=== PATIENT | female | born 2000 | race African-American/Black ===

== ENCOUNTER 2020-04-25 14:04 | Emergency (ER) | payer OTHER ==
[~2020-04-25] VITALS: Ht 165.1 cm; Wt 47.0 kg
[2020-04-25 14:50] VITALS: BP 120/82
[2020-04-25 15:25] LABS: URINE BILIRUBIN - DIPSTICK NEGATIVE (NEGATIVE); URINE BLOOD DIPSTICK NEGATIVE (NEGATIVE); URINE COLOR YELLOW; URINE GLUCOSE - DIPSTICK NEGATIVE (NEGATIVE); URINE KETONE NEGATIVE (NEGATIVE); URINE NITRITE - DIPSTICK NEGATIVE (Negative); URINE PH 6.5 (4.5-8.0); URINE PROTEIN - DIPSTICK TRACE mg/dL (NEG-TRACE); URINE SPECIFIC GRAVITY 1.025
[2020-04-25 15:27] LABS: URINE LEUK ESTERASE MODERATE (NEGATIVE)
[2020-04-25 15:35] LABS: URINE RBC 0-2 RBC/hpf (0-5); URINE SQUAMOUS EPITHELIAL CELL MANY EPI/hpf (0-FEW)
[2020-04-25 15:36] LABS: URINE BACTERIA FEW hpf
[2020-04-25] MEDS ORDERED: DIFLUCAN100 M1 PO (15:43)
== END 2020-04-25 16:15 | disposition home or self-care (01) ==
LOC: ED 14:04
DX: B37.3 Candidiasis of vulva and vagina (principal)

== ENCOUNTER 2020-11-29 17:25 | Emergency (ER) | payer OTHER ==
[~2020-11-29] VITALS: Ht 165.1 cm; Wt 55.0 kg
[~2020-11-29 17:25] MED LIST: DIFLUCAN100 M1 PO
[2020-11-29] MEDS ORDERED: LAMISIL AT1 % EX (18:10)
[2020-11-29 18:26] VITALS: BP 124/64
== END 2020-11-29 18:30 | disposition home or self-care (01) ==
LOC: ED 17:25
DX: B35.4 Tinea corporis (principal)

== ENCOUNTER 2020-12-03 08:29 | Emergency (ER) | payer OTHER ==
[~2020-12-03] VITALS: Ht 165.1 cm; Wt 50.0 kg
[~2020-12-03 08:29] MED LIST changes: +LAMISIL AT1 % EX
[2020-12-03 10:02] LABS: HEMATOCRIT 40.7 % (37.0-47.0); HEMOGLOBIN 13.2 g/dl (12.0-16.0); IMMATURE GRANULOCYTES 0.7 % (0.0-5.0); MEAN CELL VOLUME 96.2 fL CALC (80.0-100.0); MEAN CORPUSCULAR HGB 31.2 pG CALC (26.0-32.0); MEAN CORPUSCULAR HGB CONC 32.4 g/dL CAL (32.0-36.0); NEUT# 2.96 thou/uL (2.00-7.15); RED BLOOD COUNT 4.23 mill/uL (4.20-5.60); RED CELL DISTRI WIDTH 11.4 % (11.5-15.5)
[2020-12-03 10:22] LABS: ALBUMIN 5.1 g/dL (3.2-5.0); ALKALINE PHOSPHATASE 50 u/l (38-126); ANION GAP 15 (6-22 (CALC)); BILIRUBIN, TOTAL 1.2 mg/dL (0.0-1.4); BUN 12 mg/dL (8-21); BUN/CREATININE RATIO 20 (12-20 (CALC)); CARBON DIOXIDE 24 mmol/l (22-30); CHLORIDE 103 mmol/l (95-108); CREATININE 0.6 mg/dL (0.5-1.0); GFR > 60 ML/MIN (>=60 (CALC)); GFR FOR AFR.AMER. > 60 ML/MIN (>=60 (CALC)); LIPASE 152 u/l (23-300); SGOT/AST 33 u/l (14-36); SODIUM 138 mmol/l (137-146); TOTAL PROTEIN 9.2 g/dL (6.3-8.2)
[2020-12-03 11:13] LABS: URINE BILIRUBIN - DIPSTICK NEGATIVE (NEGATIVE); URINE BLOOD DIPSTICK NEGATIVE (NEGATIVE); URINE COLOR YELLOW; URINE GLUCOSE - DIPSTICK NEGATIVE (NEGATIVE); URINE KETONE NEGATIVE (NEGATIVE); URINE PROTEIN - DIPSTICK NEGATIVE (NEG-TRACE); URINE SPECIFIC GRAVITY 1.015
[2020-12-03 11:16] LABS: URINE LEUK ESTERASE MODERATE (NEGATIVE); URINE NITRITE - DIPSTICK NEGATIVE (Negative)
[2020-12-03 11:17] LABS: URINE BACTERIA FEW hpf; URINE EPITHELIAL CELLS FEW EPI/hpf (0-FEW)
[2020-12-03] MEDS ORDERED: OMNI-PAC300 MG PO (11:24)
[2020-12-03 11:38] VITALS: BP 114/60
== END 2020-12-03 12:01 | disposition home or self-care (01) ==
LOC: ED 08:29
PROVIDERS: Family Medicine
DX: N39.0 Urinary tract infection, site not specified (principal); Z20.822 Contact with and (suspected) exposure to COVID-19

== ENCOUNTER 2020-12-05 14:20 | Emergency (ER) | payer OTHER ==
[~2020-12-05] VITALS: Ht 165.1 cm; Wt 55.0 kg
[~2020-12-05 14:20] MED LIST changes: +OMNI-PAC300 MG PO
[2020-12-05] MEDS ORDERED: ZOFRAN4 MG/TAB PO (15:39)
[2020-12-05 17:00] VITALS: BP 129/71
== END 2020-12-05 17:02 | disposition home or self-care (01) ==
LOC: ED 14:20
DX: B34.9 Viral infection, unspecified (principal); Z20.822 Contact with and (suspected) exposure to COVID-19

== ENCOUNTER 2021-06-27 10:42 | Emergency (ER) | payer OTHER ==
[~2021-06-27] VITALS: Ht 165.1 cm; Wt 54.0 kg
[~2021-06-27 10:42] MED LIST changes: +ZOFRAN4 MG/TAB PO
[2021-06-27 12:12] LABS: HEMATOCRIT 47.9 % (37.0-47.0); HEMOGLOBIN 15.4 g/dl (12.0-16.0); IMMATURE GRANULOCYTES 1.2 % (0.0-5.0); MEAN CELL VOLUME 95.8 fL CALC (80.0-100.0); MEAN CORPUSCULAR HGB 30.8 pG CALC (26.0-32.0); MEAN CORPUSCULAR HGB CONC 32.2 g/dL CAL (32.0-36.0); NEUT# 1.9 thou/uL (2.00-7.15); RED CELL DISTRI WIDTH 11.7 % (11.5-15.5)
[2021-06-27 13:14] LABS: ALBUMIN 4.8 g/dL (3.2-5.0); ALKALINE PHOSPHATASE 51 u/l (38-126); ANION GAP 13 (6-22 (CALC)); BILIRUBIN, TOTAL 1.2 mg/dL (0.0-1.4); BUN 8 mg/dL (7-17); BUN/CREATININE RATIO 14 (12-20 (CALC)); CARBON DIOXIDE 23 mmol/l (22-30); CHLORIDE 107 mmol/l (95-108); CREATININE 0.6 mg/dL (0.5-1.0); GFR > 60 ML/MIN (>=60 (CALC)); GFR FOR AFR.AMER. > 60 ML/MIN (>=60 (CALC)); LIPASE 112 u/l (23-300); POTASSIUM 3.9 mmol/l (3.5-5.1); SGOT/AST 43 u/l (14-36); SODIUM 138 mmol/l (137-146); TOTAL PROTEIN 8.7 g/dL (6.3-8.2)
[2021-06-27] MEDS ORDERED: ONDANSETRON4 MG PO (14:04)
[2021-06-27 14:25] LABS: URINE BILIRUBIN - DIPSTICK NEGATIVE (NEGATIVE); URINE BLOOD DIPSTICK NEGATIVE (NEGATIVE); URINE COLOR YELLOW; URINE GLUCOSE - DIPSTICK NEGATIVE (NEGATIVE); URINE KETONE NEGATIVE (NEGATIVE); URINE LEUK ESTERASE NEGATIVE (NEGATIVE); URINE NITRITE - DIPSTICK NEGATIVE (Negative); URINE PROTEIN - DIPSTICK NEGATIVE (NEG-TRACE)
[2021-06-27 15:23] VITALS: BP 124/75
== END 2021-06-27 15:24 | disposition home or self-care (01) ==
LOC: ED 10:42
PROVIDERS: Nurse Practitioner
DX: R11.2 Nausea with vomiting, unspecified (principal)

== ENCOUNTER 2022-08-06 13:52 | Emergency (ER) | payer OTHER ==
[~2022-08-06] VITALS: Ht 165.1 cm; Wt 62.0 kg
[2022-08-06] VITALS (12 sets, daily range): BP systolic 94–139; BP diastolic 61–88
[~2022-08-06 13:52] MED LIST changes: +ONDANSETRON4 MG PO
[2022-08-06 15:51] LABS: URINE BILIRUBIN - DIPSTICK NEGATIVE (NEGATIVE); URINE BLOOD DIPSTICK TRACE-INTACT (NEGATIVE); URINE COLOR YELLOW; URINE GLUCOSE - DIPSTICK NEGATIVE (NEGATIVE); URINE KETONE NEGATIVE (NEGATIVE); URINE LEUK ESTERASE LARGE (NEGATIVE); URINE NITRITE - DIPSTICK NEGATIVE (Negative); URINE PROTEIN - DIPSTICK NEGATIVE (NEG-TRACE); URINE SPECIFIC GRAVITY <=1.005; URINE UROBILINOGEN - DIPSTICK 0.2 E.U./dL (0.2)
[2022-08-06 15:59] LABS: URINE BACTERIA FEW hpf; URINE RBC 0-2 RBC/hpf (0-5); URINE SQUAMOUS EPITHELIAL CELL FEW EPI/hpf (0-FEW); URINE TRICHOMONAS FEW hpf
[2022-08-06] MEDS ORDERED: DOXYCYCL HYC100 M4 PO (17:11)
[2022-08-06] MEDS ORDERED: METRONIDAZOLE500 MG PO (17:11)
== END 2022-08-06 16:55 | disposition home or self-care (01) ==
LOC: ED 13:52
PROVIDERS: Family Medicine
DX: N39.0 Urinary tract infection, site not specified (principal); B95.4 Other streptococcus as the cause of diseases classified elsewhere; N89.8 Other specified noninflammatory disorders of vagina

== ENCOUNTER 2023-09-25 23:18 | Emergency (ER) | payer BC ==
[~2023-09-25] VITALS: Ht 165.1 cm; Wt 51.0 kg
[~2023-09-25 23:18] MED LIST changes: +DOXYCYCL HYC100 M4 PO; +METRONIDAZOLE500 MG PO
[2023-09-26] MEDS ORDERED: ONDANSETRON HCl 4 MG/2 ML SDV IV ONE (00:50)
[2023-09-26] MEDS ORDERED: LOPERAMIDE HCL 2 MG CAP PO ONE (00:50)
[2023-09-26] MEDS ORDERED: SODIUM CHLORIDE 0.9% 1,000 ML IV ONE (00:50)
[2023-09-26] MEDS ORDERED: ONDANSETRON4 MG PO (00:55)
[2023-09-26 01:28] LABS: BASO% 0.1 % (0-3); IMMATURE GRANULOCYTES 0.9 % (0.0-5.0); LYMPH% 6.8 % (15-41); MEAN CELL VOLUME 93.6 fL CALC (80.0-100.0); MEAN CORPUSCULAR HGB 31.1 pG CALC (26.0-32.0); MEAN CORPUSCULAR HGB CONC 33.2 g/dL CAL (32.0-36.0); MONO% 3.6 % (2-13); NEUT# 13.07 thou/uL (2.00-7.15); NEUT% 88.6 % (42-76); RED BLOOD COUNT 3.92 mill/uL (4.20-5.60); RED CELL DISTRI WIDTH 11.9 % (11.5-15.5)
[2023-09-26 01:29] LABS: HEMATOCRIT 36.7 % (37.0-47.0); HEMOGLOBIN 12.2 g/dl (12.0-16.0)
[2023-09-26 01:50] LABS: ALBUMIN 4.8 g/dL (3.2-5.0); BILIRUBIN, TOTAL 0.9 mg/dL (0.02-1.3); CREATININE 0.6 mg/dL (0.5-1.0); POTASSIUM 4.1 mmol/l (3.5-5.1); TOTAL PROTEIN 8.6 g/dL (6.3-8.2)
[2023-09-26] MEDS ORDERED: PROMETHAZINE HCL 25 MG/ML AMP IM ONE (03:00)
[2023-09-26 04:00] VITALS: BP 100/60
== END 2023-09-26 04:00 | disposition home or self-care (01) | DRG 392 ==
LOC: ED 23:18
PROVIDERS: Family Medicine
DX: R11.2 Nausea with vomiting, unspecified (principal); R10.84 Generalized abdominal pain; R19.7 Diarrhea, unspecified